=== PATIENT | female | born 1985 | race Caucasian/White ===

== ENCOUNTER → 2018-08-26 | Emergency (ER) | payer SELFPAY ==
[~2018-08-26] MED LIST: Lorazepam 2 MG/ML VIAL ONE; hydrOXYzine 25 MG TAB ONE; hydrOXYzine Pamoate 25 mg Capsule ONE
[2018-08-26 18:03] LABS: #Basophils 0.1 thou/uL (0.0-0.2); #Eosinphils 0.2 thou/uL (0.0-0.7); #Lymphocytes 2.8 thou/uL (1.20-3.40); #Monocytes 0.8 thou/uL (0.11-0.59); #Neutrophils 5.5 thou/uL (1.40-6.50); %Basophils 1.1 % (0.0-1.0); %Eosinophils 1.7 % (0.0-10.0); %Lymphocytes 29.8 % (21.0-51.0); %Monocytes 8.9 % (0.0-10.0); %Neutrophils 58.5 % (42.0-75.0); Mean Corpuscular Hemoglobin 29.9 pg (27.0-31.0); Mean Corpuscular Volume 93.7 fL (78.0-98.0); Mean Platelet Volume 7.9 fL (7.4-10.4); Platelet Count 370 thou/uL (130-400); RBC Distribution Width 12.9 % (11.5-14.5); Red Blood Cell (RBC) Count 4.67 mill/uL (4.20-5.40); White Blood Cell (WBC) Count 9.4 thou/uL (4.8-10.8)
[2018-08-26 18:11] LABS: BHCG - Serum Negative (NEGATIVE); Pregs Control Background? CLEAR/WHITE (CLR/WHITE); Pregs Control Bar Appear? YES (CONTROL BAR)
[2018-08-26 18:11] LABS: Bilirubin Negative (Negative); Blood, Urine Negative (Negative); Clarity CLEAR (Clear); Glucose, Urine (Dipstick) Negative (Negative); Leukocyte Negative (Negative); Nitrite Negative (Negative); Protein, Urine (Dipstick) Negative (Neg-Trace)
[2018-08-26 18:13] LABS: Pregnancy Test - Urine (BHCG) Negative (Negative); Pregu Control Background? CLEAR/WHITE (CLR/WHITE); Pregu Control Bar Appear? YES (CONTROL BAR)
[2018-08-26 18:23] LABS: ALT (SGPT) 34 U/L (8-55); AST (SGOT) 21 U/L (5-34); Acetaminophen Less than 6.0 mcg/mL (10.0-30.0); Albumin 3.9 g/dL (3.5-5.0); Alcohol Less than 10 mg/dL (Less than 10); Alkaline Phosphatase 61 U/L (40-150); Anion Gap 13 mmol/L (10-20); BUN (Urea Nitrogen) 10 mg/dL (7.0-18.7); Bilirubin, Total Less than 0.2 mg/dL (0.2-1.2); CK (CPK) 63 U/L (29-168); Calc. Creatinine Clearance 0 mL/min (70-130); Carbon Dioxide 26 mmol/L (22-29); Chloride 107 mmol/L (98-107); Estimated GFR-MDRD 73; Globulin 3.3 g/dL (2.4-3.5); Glucose 84 mg/dL (70-105); Potassium 3.8 mmol/L (3.5-5.1); Protein, Total 7.2 g/dL (6.0-8.3); Salicylate Less than 8.0 mg/dL (15.0-30.0); Sodium 142 mmol/L (136-145)
[2018-08-26 18:25] LABS: Benzodiazepine Screen Detected (NotDetected); Medtox Reader # READER 1
[2018-08-26 18:26] LABS: Amphetamine Not Detected (NotDetected); Barbiturates Screen Not Detected (NotDetected); Cocaine Metabolite Screen Not Detected (NotDetected); Medtox Control Line Valid? VALID (VALID); Methadone Not Detected (NotDetected); Methamphetamine Not Detected (NotDetected); Opiate Screen Not Detected (NotDetected); Oxycodone Screen Not Detected (NotDetected); Phencyclidine (PCP) Not Detected (NotDetected); THC/Cannabinoid Screen Not Detected (NotDetected); Tricyclic Screen Not Detected (NotDetected)
== END ==
LOC: ERS 17:17
DX: F32.9 Major depressive disorder, single episode, unspecified (principal); F41.9 Anxiety disorder, unspecified; F17.210 Nicotine dependence, cigarettes, uncomplicated; Z79.899 Other long term (current) drug therapy
CPT/HCPCS: 36415; 80053; 80306; 80307; 81003; 81025; 82550; 84443; 84703; 85025; 93005; 96372; J2060; Q0177

== ENCOUNTER 2019-02-06 12:50 | Emergency (ER) | payer OTHER ==
[2019-02-06] MEDS ORDERED: Acetaminophen 500 MG TAB ONE (13:59)
[2019-02-06] MEDS ORDERED: Ketorolac Tromethamine 60 MG/2 ML VIAL ONE (13:59)
--- NOTE | 2019-02-06 14:08 | RAD ---
Exam: 3 views thoracic spine HISTORY: Patient fell 3 days ago. Pain FINDINGS: AP, lateral and swimmer's view of the thoracic spine are submitted for interpretation. 12 thoracic ty pe vertebral bodies. Bilateral transpedicular screws with vertical and horizontal stabilization rods at T6, T7 and T9. Left-sided transpedicular screw at T8. Laminectomy defect at T7. With regards of thoracic vertebra, vertebral body height is maintained. No fracture. No significant l oss of disc space height. No perihardware lucency with regards to the fusion hardware. IMPRESSION: No fracture. Uncomplicated fusion the mid thoracic spine
--- NOTE | 2019-02-06 14:08 | RAD ---
LUMBAR SPINE RADIOGRAPH 3 VIEW SERIES: INDICATION: Emergency exam for fall with back injury and pain. FINDINGS: There is no acute compression fracture or significant subluxation. Partially imaged hardware of the thoracic spine is present. Mild end plate degenerative change is present, notably involving thoracol umbar junction and lumbosacral junction. Incidental note of cholecystectomy clips. IMPRESSION: No acute compression fracture or subluxation of the lumbar spine. POS: C
== END 2019-02-06 14:37 | disposition home or self-care (01) ==
LOC: ERS 12:50
DX: S29.012A Strain of muscle and tendon of back wall of thorax, initial encounter (principal); F31.9 Bipolar disorder, unspecified; F17.210 Nicotine dependence, cigarettes, uncomplicated; Z79.899 Other long term (current) drug therapy; W18.30XA Fall on same level, unspecified, initial encounter
CPT/HCPCS: 72072; 72100; 96372; J1885

== ENCOUNTER 2019-04-23 20:41 | Emergency (ER) | payer OTHER ==
--- NOTE | 2019-04-23 22:01 | RAD ---
EXAM: 3 views of the lumbosacral spine HISTORY: Low back pain COMPARISON: 02/06/2019 FINDINGS: 3 views of the lumbosacral spine shows normal height and alignment of the vertebral bodies and intervertebral discs without fracture or subluxation. No significant degenerative changes are seen. The sacroiliac joints are unremarkable. IMPRESSION: No significant lumbar spine abnormality.
== END 2019-04-23 22:29 | disposition home or self-care (01) ==
LOC: ERS 20:41
DX: S39.012A Strain of muscle, fascia and tendon of lower back, initial encounter (principal); F31.81 Bipolar II disorder; F17.210 Nicotine dependence, cigarettes, uncomplicated; Z79.899 Other long term (current) drug therapy; X58.XXXA Exposure to other specified factors, initial encounter
CPT/HCPCS: 72100